=== PATIENT | male | born 1995 | race Caucasian/White ===

== ENCOUNTER 2018-05-05 17:20 | Emergency (ER) | payer OTHER ==
[~2018-05-05] VITALS: Ht 182.9 cm; Wt 72.6 kg
[2018-05-05 17:20] VITALS: BP 151/93
--- NOTE | 2018-05-05 17:38 | PHYS DOC ---
Adult General Chief Complaint Chief Complaint: OTHER COMPLAINTS HPI HPI Patient is a 23 year old male who presents for hepatitis B IgM. 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 He states he already did blood work related to this injury. He states they recommended he gets hepatitis B IgM. He already received a tetanus vaccine. He has no symptoms. Review of Systems Review of Systems Constitutional: She is visit for hepatitis B IgM. Denies fever or chills [] Musculoskeletal: Denies back pain or joint pain [] Integument: Needle stick to the left knee Neurologic: Denies headache, focal weakness or sensory changes [] All other systems were reviewed and found to be within normal limits, except as documented in this note. Current Medications Current Medications Current Medications Medications (Trade) Dose Ordered Sig/Yola Start Time Stop Time Status Last Admin Dose Admin Hepatitis B Immune Globulin (Nabi-Hb) 0.5 ml ONCE ONCE 05/05/18 17:30 05/05/18 17:31 UNV Allergies Allergies Allergies Coded Allergies Type Severity Reaction Last Updated Verified No Known Drug Allergies 05/05/18 No Physical Exam Physical Exam Constitutional: Well developed, well nourished, no acute distress, non-toxic appearance. [] Skin: Warm, dry, no erythema, no rash. [] Back: No tenderness, no CVA tenderness. [] Extremities: No tenderness, no cyanosis, no clubbing, ROM intact, no edema. [] Neurologic: Alert and oriented X 3, normal motor function, normal sensory function, no focal deficits noted. [] Psychologic: Affect normal, judgement normal, mood normal. [] EKG EKG [] Radiology/Procedures Radiology/Procedures [] Course & Med Decision Making Course & Med Decision Making Pertinent Labs and Imaging studies reviewed. (See chart for details) This is a 23-year-old male patient presenting to the ED today to be given hepatitis B IgM. He got stuck by a needle a week ago. He has already done lab work. They recommended he gets hepatitis B IgM, vaccine was given in the ED. Tetanus is up-to-date. Follow-up with PCP as needed. Dragon Disclaimer Dragon Disclaimer This electronic medical record was generated, in whole or in part, using a voice recognition dictation system. Departure Departure Impression: Primary Impression: Need for hepatitis B vaccination Disposition: HOME, SELF-CARE Condition: STABLE Patient Instructions: Hepatitis B Immune Globulin, HBIG injection Additional Instructions: You were evaluated in the emergency room and given hepatitis B IgM. Continue following up with your own doctor. Come back to the Ed if symptoms worsen. RONALDO JIM APRN May 05, 2018 17:38
[2018-05-05] MEDS ORDERED: HEPATITIS B IMMUNE GLOBULIN 312 UNIT/ML VIAL. VAX IM ONE (18:00)
== END 2018-05-05 18:12 | disposition home or self-care (01) ==
LOC: ER 17:20
DX: Z23 Encounter for immunization (principal)
CPT/HCPCS: 90371; 90471; 96372; 99283-25